=== PATIENT | male | born 1995 | race African-American/Black ===

== ENCOUNTER 2016-11-15 21:13 | Emergency (ER) | payer MEDICAID ==
[2016-11-15] MEDS ORDERED: Acetaminophen/HYDROcodone 325-5 MG Tab PO ONE (22:36)
[2016-11-15 22:49] VITALS: BP 134/83
--- NOTE | 2016-11-17 00:48 | ER ---
DATE SEEN: 11/15/2016 TIME SEEN: The patient was seen at 2130 hours. 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 PAST MEDICAL HISTORY: Negative. No allergies. No diabetes. No heart disease, high blood pressure, or other serious illnesses. REVIEW OF SYSTEMS: Negative. SOCIAL HISTORY: The patient is a nonsmoker. Does not drink alcohol. Does not use drugs. PHYSICAL EXAMINATION: VITAL SIGNS: Blood pressure 139/82, heart rate regular at 79, respirations 16, oxygen saturation 100%, and temperature 37.1 degrees centigrade. GENERAL: This tall, handsome, well-muscled young athlete complains of moderate pain in his left chest and leans slightly forward. HEENT: Without abnormality. PERRLA intact. Pharynx without abnormality. NECK: Supple. No thyromegaly. No masses in neck. LUNGS: Clear to auscultation without rales, rhonchi, or wheezes. Left chest discomfort, mild, with palpation of ribs 8, 9, 10, anterior axillary line. No sternochondral or costochondral discomfort. No rales in the lungs. ABDOMEN: No hepatosplenomegaly. No tenderness in the abdomen. No sternochondral or costochondral discomfort. HEART: S1, S2. No murmur. No irregularity of rhythm. ABDOMEN: Soft. BACK: Without CVA percussion tenderness. SKIN: No spinous process tenderness. No evidence for herpetic lesions in the dermis. GENITALIA: Not examined. EXTREMITIES: Lower extremities without abnormality. NEUROLOGIC: Deep tendon reflexes normal upper and lower extremities. Cranial nerves 2 through 12 intact. Gait appropriate. IMAGING: Rib detail was performed. No evidence for fracture. Chest x-ray is negative. ASSESSMENT: 1. Left chest wall contusion, no evidence for rib fracture. 2. Intercostal myalgia. 3. No evidence for costochondritis or sternochondritis. PLAN: Treat with ibuprofen and Tylenol, 1000 mg Tylenol q.6 hours and 600 mg ibuprofen q.6 hours to take together. Follow up with doctor in a week. Increase activity as tolerated. I advised him that he would have the aches and pains like any football player who plays hard and I encouraged him to be active and participate in the practices and not restrict his activity. /[id number] CARRI/TREY
--- NOTE | 2016-11-17 13:40 | CR ---
INDICATION: Pain. Playing football and was hit left lateral chest. Left lateral rib pain. LEFT RIBS WITH CHEST: CHEST: Two PA views of the chest were obtained. Heart, mediastinum, and bony thorax were unremarkable. An active infiltrate, effusion, contusion, or pneumothorax was not identified. IMPRESSION: No active disease. LEFT RIBS: Two views of the left ribs were obtained and revealed no evidence of a displaced fracture site or other bony abnormality. IMPRESSION: Normal left ribs - if an occult fracture site is suspected clinically, re-examination in 10-14 days may be helpful. MTDD
== END 2016-11-15 22:45 | disposition home or self-care (01) ==
LOC: FB.ED 21:13
DX: S20.212A Contusion of left front wall of thorax, initial encounter (principal); W21.89XA Striking against or struck by other sports equipment, initial encounter
CPT/HCPCS: 71101-LT; 99283; A9270-GY